=== PATIENT | female | born 1980 | race Caucasian/White ===

== ENCOUNTER → 2018-07-04 20:36 | Outpatient (CLI) | payer BC, SELFPAY ==
[2018-07-06 18:42] LABS: HPV Reflexed? NOT INDICATED
--- OUTSIDE RECORDS SUMMARY | 2018-10-06 10:19 | XMS RPT_ITS ---
:1980 Author Organization OHIP Care Team Providers Name Role Phone Sarai Lino Attending Unavailable PROBLEMS PROBLEMS DATE TYPE CONDITION / CODE ATTENDING STATUS SOURCE 07/04/2018 Unknown Z12.4 - Sarai Lino Active [place] Encounter for Community screening for Hospital malignant Repository neoplasm of cervix / Z12.4(ICD-10) PROCEDURES PROCEDURES No Procedure Records FoundRESULTS RESULTS PAP I-G W/RFX HRHPV Collected: 07/04/2018 Status: F Source: [facility] 3:15 PM [facility] REPOSITORY Order Comment: CYTOLOGY INFORMATION: - CLINICAL INFORMATION: - DATE LMP/MENOPAUSE: 06/12/18 LMP - COLLECTION VIAL: Thin Prep Vial - 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 of containers..01 ThinPrep Vial TYPE CODE TESTS RESULT OUT OF RANGE REFERENCE UNITS LAB L7400.0800 . Normal DIAGN Comment Result Comment: NEGATIVE FOR INTRAEPITHELIAL LESION AND MALIGNANCY. LAB L7400.0900 . Normal ADEQ Comment Result Comment: Satisfactory for evaluation. Endocervical and/or squamous metaplastic cells (endocervical component) are present. LAB L7400.1400 . Normal PERFORM Comment Result Comment: Vanna Haddad, Ore Sampler (ASCP) LAB L7400.2575 . Normal TEST METHOD Comment Result Comment: This liquid based ThinPrep(R) pap test was screened with the use of an image guided system. LAB L7400.2600 . Normal . COMM LAB L7400.2700 . Normal PAPSMR Comment Result Comment: The Pap smear is a screening test designed to aid in the detection of premalignant and malignant conditions of the uterine cervix. It is not a diagnostic procedure and should not be used as the sole means of detecting cervical cancer. Both false-positive and false-negative reports do occur. LAB L7400.2800 . Normal HPV RFLX Comment Result Comment: The HPV DNA reflex criteria were not met with this specimen result therefore, no HPV testing was performed. Performed at: [facility] Lab[address] [id number] Aromatherapist: Mitra Barcenas MD, Phone: [phone] Performed By: #### L7400.0350 #### [facility] (refer to report for specific site) refer to report for address and phone number ALLERGIES ALLERGIES No Allergies Records FoundENCOUNTERS ENCOUNTERS ADMIT/DISCHARGE ACCOUNT ADMITTING ENCOUNTER LOCATION SOURCE NUMBER CLASS 07/04/2018 [id number] Ambulatory [place]ia 1 [facility] ing:[facility] Repository PAYERS PAYERS ENCOUNTER GUARANTOR PAYER SUBSCRIBER SOURCE 07/04/2018 Neha S Primary Neha Plasencia [place] [id number] Insurance:[facility]: [facility] y Number: [id number] [id number] [place] [id number]: Date:8142-05-90SN [address] [place] [address] () [id number]: 07/04/2018 Secondary NOT GIVENUNK Elysia Insurance:SELF PAY [facility] Number: Effective Repository Date:2018-07-04
== END ==
PROVIDERS: Visit Provider Obstetrics & Gynecology
DX: Z12.4 Encounter for screening for malignant neoplasm of cervix (principal)
CPT/HCPCS: 88175; G0145

== ENCOUNTER → 2019-04-03 08:56 | Outpatient (CLI) | payer BC, SELFPAY ==
--- NOTE | 2019-04-03 09:00 | BI_ITS ---
MAMMOGRAPHY - BILATERAL SCREENING REASON FOR EXAM: Female, 39 years old. Routine annual screening examination. PERTINENT HISTORY: Non-contributory. TECHNIQUE: Digital bilateral breast leon (3D mammographic acquisition) in the CC and MLO projections. 2-D mediolateral oblique (MLO) and craniocaudad (CC) views of both breasts were obtained. CAD: Full Field Digital Mammography with Computer Added Detection was performed. COMPARISON: Comparison is made with prior examination dated May 05, 2013. FINDINGS: Breast Composition: The breasts are heterogeneously dense, which may obscure small masses. There are no dominant masses or suspicious calcifications. Small bilateral benign-appearing axillary lymph nodes. No other significant abnormalities are identified. There has been no significant change since the prior study. BI/SCREEN MAMM (CAD) W/LEON BILAT IMPRESSION: Stable bilateral screening mammogram. Yearly follow-up mammogram recommended. (A) ASSESSMENT CATEGORY: BIRADS Category 2: Benign. A letter regarding these results will be sent to the patient by the facility within 30 days. Approximately 10% of breast cancers are not detected by mammography. A normal mammogram should not delay biopsy of a clinically suspicious abnormality. [id number] Electronically Signed: Nick Coppola, at 10:49 EDT , Service support ,
== END ==
PROVIDERS: Referring Provider Obstetrics & Gynecology; Visit Provider Obstetrics & Gynecology
DX: Z12.31 Encounter for screening mammogram for malignant neoplasm of breast (principal)
CPT/HCPCS: 77063; 77067

== ENCOUNTER → 2019-04-20 12:59 | Outpatient (CLI) | payer BC, SELFPAY ==
[2019-04-20 12:46] VITALS: BMI 27.2
--- NOTE | 2019-04-20 13:11 | RAD_ITS ---
STUDY: X-RAY CHEST REASON FOR EXAM: Female, 39 years old. Cough. TECHNIQUE: PA and lateral views of the chest. COMPARISON: None. FINDINGS: Mild degree of increased markings in the right upper lobe as well as in the lingular segment of the left upper lobe. Follow-up is recommended. There is no demonstrated pleural abnormality. Normal size heart. Normal mediastinum and lit. Normal visualized pulmonary arteries. Normal visualized aortic arch and descending thoracic aorta. Normal visualized thoracic spine. Normal visualized ribs, clavicles, and shoulders. There is no demonstrated abnormality of the visualized soft tissue structures of the upper abdomen. RAD/Chest PA and Lateral IMPRESSION: Increased markings in the right upper lobe as well as the lingular segment of the left upper lobe. Early infiltrate should be ruled out. Follow-up is recommended. Electronically Signed: Nick Coppola, at 13:41 EDT , Service support ,
== END ==
PROVIDERS: Referring Provider Physician Assistant; Visit Provider Physician Assistant
DX: R05 Cough (principal)
CPT/HCPCS: 71046

== ENCOUNTER 2019-04-22 20:41 | Emergency (ER) | payer BC, SELFPAY ==
[2019-04-20 12:46] VITALS: BMI 27.2
[2019-04-22 20:42] VITALS: BP 119/71; PULSE 113; RESP 15; TEMP 38.1; O2SAT 95; BMI 25.8
[2019-04-22 21:41] VITALS: PULSE 105; RESP 18
[2019-04-22] MEDS: Albuterol 2.5 MG/3 ML VIAL.NEB. INHALATION (21:41)
[2019-04-22] MEDS: 0.9% Normal Saline 1,000 ML 1000 ML IV (22:00)
--- NOTE | 2019-04-22 22:09 | ED.VIS.GEN ---
History of Present Illness Chief Complaint: General Illness Informant: Patient Onset: Days Context: Sudden Onset Timing: Continuous Quality: Fever, chills, diaphoresis and productive cough Location: Respiratory Current Severity: Mild Maximum Severity: Moderate Worsened by: Coughing and activity Relieved by: Nothing Associated Symptoms: Fatigue and malaise Narrative: Patient reports she was in [facility] for 3 days. She has been ill since Wednesday with fever, chills and productive cough. On Wednesday she was seen at urgent clinic and had chest x-ray that was interpreted as negative. She was prescribed Augmentin. She is a non-smoker. No one else is ill. She reports headache and generalized weakness/malaise. She complains of lower abdominal pain. She has no other symptoms. Prior similar symptoms: No Recent Illness/Hospitalization: No - Past Medical History (1) Bronchitis Status: Acute Past Medical History - Allergies and Home Meds Allergies/Adverse Reactions: Allergies No Known Allergies Allergy (Verified 04/22/19 20:48) Primary Care Physician: Care Physician,No Primary [Primary Care Provider] - Prior records reviewed: No Past Medical History: None Surgical History: noncontributory Lives: Spouse/ Significant Other Smoking Status: Never smoker Drugs: None Review of Systems General: Reports: Chills, Fever, Malaise, Subjective, Sweats. Denies: Weight loss Eyes: Denies: Visual changes - bilaterally, Blurred Vision - bilaterally ENT: Denies: Bilateral ear pain, Rhinorrhea, Sore throat Cardiovascular: Denies: Chest pain, Palpitations Respiratory: Reports: Dyspnea, Cough, Sputum, Dyspnea on exertion. Denies: Orthopnea, Paroxysmal nocturnal dyspnea Gastrointestinal: Reports: Abdominal pain - Bilateral right and left lower quadrant, Nausea. Denies: Vomiting, Diarrhea, Constipation, Melena, Hematochezia Genitourinary: Denies: Dysuria, Hematuria, Frequency Musculoskeletal: Denies: Myalgias, Arthralgias, Neck pain, Back pain, Swelling, Extremity Pain Skin: Denies: Rash, Wounds Neurological: Reports: Weakness. Denies: Headache, Parasthesia, Numbness Hematologic: Denies: Easy bruising, Easy bleeding Physical Exam Vital Signs/Narrative: Vital Signs Temp Pulse Resp BP Pulse Ox 04/22/19 21:41 102 H 18 04/22/19 20:42 100.5 F H 113 H 15 119/71 95 Inital Vital Signs reviewed: Yes General: Well nourished, Well developed, No Acute Distress Head: Normocephalic, Atraumatic Eyes: Perrl, EOMI. Negative for: Pale conjunctiva, Scleral icterus ENT: Moist mucous membranes, No rhinorrhea, TM's clear Neck: Supple, Nontender, No lymphadenopathy, No JVD Cardiovascular: Regular rhythm, No murmurs, Normal S1, Tachycardia Respiratory: No distress, Chest nontender, Wheezing, Diminished Abdomen: Soft, Nontender, Nondistended, Normal bowel sounds Rectal: Deferred Back: Nontender, Normal Inspection Extremities: Nontender, No edema Skin: Normal color, No rash Neurological: Alert, Oriented x3, Cranial nerves II-XII grossly intact, Normal Strength, Normal Sensation Psychological: Normal affect, Normal Mood Diagnostic/Tx/Re-eval Chest X-Ray - ED: 2 View, Read by ED Physician, Normal, Heart, Mediastinum, Bony Structures, Right Infiltrate - Right middle lobe infiltrate Impressions Chest X-Ray 04/22/19 22:10 IMPRESSION: Right upper lobe, right middle lobe and left lingular infiltrates. These are progressive when compared to prior study. Again follow-up to clearing is recommended at 2244 Reported and signed by: Latosha Reno DO Electronically Signed: Latosha Reno DO at 22:43 EDT Tel , Service support , 04/22/19 22:10 Chest PA and Lateral [RAD] Stat Laboratory Results 04/22/19 04/22/19 04/22/19 21:55 21:55 21:55 WBC 5.1 RBC 3.98 L Hgb 11.7 L Hct 34.6 L MCV 86.9 MCH 29.4 MCHC 33.8 RDW Std Deviation 40.6 RDW Coeff of Carolee 12.6 Plt Count 184 MPV 10.4 Immature Gran % (Auto) 0.200 Neut % (Auto) 76.0 H Lymph % (Auto) 16.2 L O'Brien % (Auto) 7.2 Eos % (Auto) 0.2 Baso % (Auto) 0.2 Absolute Neuts (auto) 3.9 Absolute Lymphs (auto) 0.83 Nucleated RBC % 0 Sodium 140 Potassium 3.4 L Chloride 103 Carbon Dioxide 28.0 Anion Gap 9 BUN 7 Creatinine 0.70 Estim Creat Clear Calc 111.65 Est GFR (MDRD) Af Amer 120 Est GFR (MDRD) Non-Af 99 BUN/Creatinine Ratio 10.0 Glucose 102 Lactic Acid 0.7 Calcium 8.9 The radiology report was read. There is evidence of a lingular infiltrate. Since patient only has 1 sirs criteria normal white count normal electrolytes normal lactate and a port score of only 40 will discharge on antibiotic to cover atypicals as well. She received her first dose of levofloxacin in the emergency department. Since she does not have a primary care doctor she was referred to Dr. Tracy Yepez - Medical Decision Making Since patient is wheezing she was treated with albuterol aerosol x3. Chest x-ray was obtained since pneumonia may not be seen for several days. Since she is tachycardic and febrile CBC, BMP and lactate were obtained for risk stratification in the event that a infiltrate is noted on the chest x-ray. ED Disposition - Plan for ED Patient: Disposition: Home or Assisted Living Diagnosis: Bilateral pneumonia Instructions: PNEUMONIA (Adult) Prescriptions: Levofloxacin 750 mg PO DAILY #7 tab Prescription Printed Referrals: Care Physician,No Primary [Primary Care Provider] - Tracy Yepez MD [STAFF PHYSICIAN] - 3-5 Days
--- NOTE | 2019-04-22 22:10 | RAD_ITS ---
HISTORY:PERSISTENT COUGH, SOB, FEVER SINCE WEDNESDAYRECENTLY TRAVELED TO [facility] PERSISTENT COUGH, SOB, FEVER SINCE WEDNESDAYRECENTLY TRAVELED TO [facility] EXAM: XR Chest 2 Views: COMPARISON: April 20, 2019 FINDINGS: # of images incl. paperwork: 2 LINES/DEVICES: None. LUNGS: persistent right upper lobe increased opacity that has increased when compared to prior study. There is also increased opacity seen within the left lingula and the right middle lobe suspect for progressive infiltrates.. No consolidation, edema or effusion. No pneumothorax. MEDIASTINUM AND CARDIOVASCULAR STRUCTURES: Cardiac silhouette not enlarged. BONES AND SOFT TISSUES: Unremarkable. RAD/Chest PA and Lateral IMPRESSION: Right upper lobe, right middle lobe and left lingular infiltrates. These are progressive when compared to prior study. Again follow-up to clearing is recommended at 2244 Reported and signed by: Latosha Reno DO Electronically Signed: Latosha Reno DO at 22:43 EDT Tel , Service support ,
[2019-04-22 22:19] LABS: Absolute Lymphocyte Count 0.83 X10^3/uL (0.83-4.51); Absolute Neutrophil Count 3.9 X10^3/uL (2.0-7.7); Basophil# 0.01 X10^3/uL; Basophil% 0.2 % (0-1); Eosinophil# 0.01 X10^3/uL; Eosinophils% 0.2 % (0-5); Hematocrit 34.6 % (37-47); Hemoglobin 11.7 g/dL (12.0-15.0); Lymphocyte # 0.83 X10^3/ul (4.0); Lymphocyte % 16.2 % (19-41); Mean Corp Hgb Conc 33.8 g/dL (32-36); Mean Corpuscular Hgb 29.4 pg (27.0-32.0); Mean Corpuscular Volume 86.9 fL (81-99); Mean Platelet Vol. 10.4 fl (6.2-12.0); Monocyte# 0.37 X10^3/uL; Monocyte% 7.2 % (0-10); NRBC Flagged by Analyzer 0 % (0-5); Neutrophil # 3.88 X10^3/uL (2.7-7.7); Platelet Count 184 K/mm3 (150-450); RBC Distribution Width CV 12.6 % (11.6-14.6); RBC Distribution Width SD 40.6 fl (35.1-43.9); Red Blood Count 3.98 M/mm3 (4.2-5.4); White Blood Count 5.1 K/mm3 (4.4-11.0)
[2019-04-22 22:30] LABS: Anion Gap 9 (5-15); BUN 7 mg/dL (7-18); Calcium,Total 8.9 mg/dL (8.5-10.1); Chloride 103 mmol/L (98-107); EST Glomerular Filtration Rate 99 mL/min (>60); Est Glom Filt Rate - Afr Amer 120 mL/min (>60); Estimated Creatinine Clearance 111.65 ml/min; Glucose 102 mg/dL (74-106); Potassium 3.4 mmol/L (3.5-5.1); Sodium Level 140 mmol/L (136-145)
[2019-04-22 22:34] LABS: Lactic Acid 0.7 mmol/L (0.4-2.0)
[2019-04-22 22:57] VITALS: BP 112/71; PULSE 105; RESP 21; O2SAT 97
[2019-04-22 23:24] VITALS: BP 109/70; PULSE 104; RESP 18; O2SAT 95
[2019-04-22] MEDS: levoFLOXacin 750 MG Tablet PO (23:24)
== END 2019-04-22 23:47 | disposition home or self-care (01) ==
PROVIDERS: Emergency Provider Emergency Medicine
DX: J18.9 Pneumonia, unspecified organism (principal)
CPT/HCPCS: 71046; 80048; 83605; 85025; 94640; 94664; 96360; 99284; J7030; A4216

== ENCOUNTER 2019-04-25 10:23 | Emergency (ER) | payer BC, SELFPAY ==
[2019-04-25 10:23] VITALS: BP 127/69; PULSE 87; RESP 18; TEMP 36.4; O2SAT 99; BMI 27.3
--- NOTE | 2019-04-25 10:33 | RAD_ITS ---
STUDY: X-RAY CHEST REASON FOR EXAM: Female, 39 years old. Pneumonia TECHNIQUE: PA and lateral views of the chest. COMPARISON: 04/22/2019 FINDINGS: No change in the faint alveolar opacity in the periphery of the right upper lobe the lungs consistent with right upper lobe pneumonia. There is no demonstrated pleural abnormality. Normal size heart. Normal mediastinum and lit. Normal visualized pulmonary arteries. Normal visualized aortic arch and descending thoracic aorta. Normal visualized thoracic spine. Normal visualized ribs, clavicles, and shoulders. There is no demonstrated abnormality of the visualized soft tissue structures of the upper abdomen. RAD/Chest PA and Lateral IMPRESSION: No change in right upper lobe pneumonia. Electronically Signed: Phani Aabrca MD at 11:35 EDT Tel , Service support ,
--- NOTE | 2019-04-25 10:41 | ED.VIS.GEN ---
History of Present Illness Chief Complaint: Shortness of Breath Detail of Chief Complaint: With bilateral pneumonia Wednesday Informant: Patient Onset: - - Onset of illness last Wednesday, 8 days ago Context: Sudden Onset Timing: Intermittent Quality: Fever, chills, cough and shortness of breath Location: Generalized and respiratory Current Severity: Mild Maximum Severity: Moderate Worsened by: Nothing Relieved by: Improved with antipyretic and albuterol MDI Associated Symptoms: Fever to 101.0 ?F last evening shaking chills. She had episode of emesis Narrative: Patient is a 39-year-old female who had onset of rest for symptoms last Wednesday, February 16. She was seen on Wednesday and diagnosed with bilateral pneumonia and treated with levofloxacin and 50 mg. Patient had persistent fever and chills. She reports breathing is better. She feels at this time her lungs are tight. She has not had a documented fever or chills since last evening, 2200. She states she vomited 1.5 hours after taking dose of levofloxacin last evening. She denies headache, visual, ocular auditory symptoms. Cough is less productive. She has not vomited since last evening. She states her fingers are cold when she has the chills. She denies myalgias or arthralgias. Prior similar symptoms: Yes Recent Illness/Hospitalization: Yes - Past Medical History (1) Bilateral pneumonia Status: Acute Past Medical History - Allergies and Home Meds Allergies/Adverse Reactions: Allergies No Known Allergies Allergy (Verified 04/22/19 20:48) Primary Care Physician: Care Physician,No Primary [Primary Care Provider] - Prior records reviewed: Yes Surgical History: noncontributory Lives: Spouse/ Significant Other Smoking Status: Never smoker Alcohol: Rare Drugs: None Review of Systems General: Reports: Chills, Fever, Malaise. Denies: Subjective, Sweats, Weight loss Eyes: Denies: Visual changes - bilaterally, Blurred Vision - bilaterally, Diplopia ENT: Denies: Bilateral ear pain, Rhinorrhea, Sore throat Cardiovascular: Denies: Chest pain, Palpitations, Heart racing Respiratory: Reports: Dyspnea, Cough, Sputum, Dyspnea on exertion. Denies: Orthopnea, Paroxysmal nocturnal dyspnea Gastrointestinal: Denies: Abdominal pain, Nausea, Vomiting, Diarrhea, Melena, Hematochezia Musculoskeletal: Denies: Myalgias, Arthralgias, Neck pain, Back pain, Swelling, Extremity Pain Skin: Denies: Rash, Wounds Neurological: Denies: Headache, Weakness, Parasthesia Hematologic: Denies: Easy bruising, Easy bleeding Allergy: Denies: Uticaria, Swelling of the mouth Physical Exam Vital Signs/Narrative: Vital Signs Temp Pulse Resp BP Pulse Ox 04/25/19 10:23 97.5 F L 87 18 127/69 H 99 Inital Vital Signs reviewed: Yes General: Well nourished, Well developed, No Acute Distress Head: Normocephalic, Atraumatic Eyes: Perrl, EOMI. Negative for: Pale conjunctiva, Scleral icterus ENT: Moist mucous membranes, TM's clear Neck: Supple, Nontender, No lymphadenopathy, No JVD Cardiovascular: Regular rate, Regular rhythm, No murmurs, Normal S1, Normal S2 Respiratory: No distress, Chest nontender, Rales - Rales posteriorly left lower lobe. Negative for: CTA bilaterally Abdomen: Soft, Nontender, Nondistended, Normal bowel sounds Rectal: Deferred Back: Nontender, Normal Inspection Extremities: Nontender, No edema Skin: Normal color, Rash - Blanching erythematous macular rash anterior superior chest Neurological: Alert, Oriented x3, Cranial nerves II-XII grossly intact, Normal Strength, Normal Sensation, Normal DTR Psychological: Normal affect, Normal Mood Diagnostic/Tx/Re-eval Chest X-Ray - ED: 2 View, Read by ED Physician, - - Lingula infiltrate has essentially resolved. The right middle lobe infiltrate has improved. There is still slight streaking noted right upper lobe. Impressions Chest X-Ray 04/25/19 10:33 IMPRESSION: No change in right upper lobe pneumonia. Electronically Signed: Phani Abarca MD at 11:35 EDT Tel , Service support , 04/25/19 10:33 Chest PA and Lateral [RAD] Stat Laboratory Results 04/25/19 04/25/19 04/25/19 10:45 10:45 10:45 WBC 4.9 RBC 4.08 L Hgb 12.0 Hct 36.4 L MCV 89.2 MCH 29.4 MCHC 33.0 RDW Std Deviation 41.3 RDW Coeff of Carolee 12.5 Plt Count 230 MPV 9.5 Immature Gran % (Auto) 0.800 Neut % (Auto) 71.6 H Lymph % (Auto) 17.3 L Stafford % (Auto) 9.3 Eos % (Auto) 0.6 Baso % (Auto) 0.4 Absolute Neuts (auto) 3.5 Absolute Lymphs (auto) 0.85 Nucleated RBC % 0 Sodium 137 Potassium 3.4 L Chloride 104 Carbon Dioxide 28.0 Anion Gap 5 BUN 6 L Creatinine 0.66 Estim Creat Clear Calc 118.41 Est GFR (MDRD) Af Amer 128 Est GFR (MDRD) Non-Af 106 BUN/Creatinine Ratio 9.1 L Glucose 92 Lactic Acid 0.9 Calcium 9.0 Since white count is normal with normal differential, electrolytes are normal and lactate is normal with improving chest x-ray will discharge to home. Since she reports nausea will prescribe Zofran. - Medical Decision Making With persistent fever and chills will obtain chest x-ray since there is new findings compared to this past Wednesday and will obtain blood work for risk stratification. Since she is having persistent fevers will obtain blood cultures as well. ED Disposition - Plan for ED Patient: Disposition: Home or Assisted Living Diagnosis: Community acquired pneumonia Prescriptions: Ondansetron [Zofran Odt] 4 mg PO Q8H PRN PRN #6 tab PRN Reason: Nausea Transmission Status: Pending to [facility]/pharmacy #[id number] Referrals: Care Physician,No Primary [Primary Care Provider] - Tracy Yepez MD [STAFF PHYSICIAN] - Additional Instructions: Your prescription was electronically transmitted to preferred pharmacy.
[2019-04-25 10:56] LABS: Absolute Lymphocyte Count 0.85 X10^3/uL (0.83-4.51); Absolute Neutrophil Count 3.5 X10^3/uL (2.0-7.7); Basophil# 0.02 X10^3/uL; Basophil% 0.4 % (0-1); Eosinophil# 0.03 X10^3/uL; Eosinophils% 0.6 % (0-5); Hematocrit 36.4 % (37-47); Lymphocyte # 0.85 X10^3/ul (4.0); Lymphocyte % 17.3 % (19-41); Mean Corpuscular Hgb 29.4 pg (27.0-32.0); Mean Corpuscular Volume 89.2 fL (81-99); Mean Platelet Vol. 9.5 fl (6.2-12.0); Monocyte# 0.46 X10^3/uL; Monocyte% 9.3 % (0-10); NRBC Flagged by Analyzer 0 % (0-5); Neutrophil # 3.52 X10^3/uL (2.7-7.7); Neutrophil % 71.6 % (47-70); Platelet Count 230 K/mm3 (150-450); RBC Distribution Width CV 12.5 % (11.6-14.6); RBC Distribution Width SD 41.3 fl (35.1-43.9); Red Blood Count 4.08 M/mm3 (4.2-5.4); White Blood Count 4.9 K/mm3 (4.4-11.0)
[2019-04-25 11:13] LABS: Anion Gap 5 (5-15); BUN 6 mg/dL (7-18); BUN/Creat Ratio 9.1 RATIO (10-20); Chloride 104 mmol/L (98-107); Creatinine, Serum 0.66 mg/dL (0.55-1.02); EST Glomerular Filtration Rate 106 mL/min (>60); Est Glom Filt Rate - Afr Amer 128 mL/min (>60); Estimated Creatinine Clearance 118.41 ml/min; Glucose 92 mg/dL (74-106); Potassium 3.4 mmol/L (3.5-5.1); Sodium Level 137 mmol/L (136-145)
[2019-04-25 11:29] LABS: Lactic Acid 0.9 mmol/L (0.4-2.0)
[2019-04-25 12:19] VITALS: BP 104/67; PULSE 86; RESP 16; O2SAT 97
== END 2019-04-25 12:34 | disposition home or self-care (01) ==
PROVIDERS: Emergency Provider Emergency Medicine
DX: J18.9 Pneumonia, unspecified organism (principal); R21 Rash and other nonspecific skin eruption
CPT/HCPCS: 71046; 80048; 83605; 85025; 87040; 99283; A4216

== ENCOUNTER 2019-08-16 12:56 | Outpatient (RCR) | payer BC, SELFPAY ==
[2019-05-22 13:38] VITALS: BMI 27.3
--- NOTE | 2019-08-18 12:39 | HP.OTEVAL_ITS ---
Patient's Visit Information MARIYA MORENO is a 39 year old F, referred to Occupational Therapy by Jose Burt MD, with a diagnosis of Left hand contracture.. Date of Evaluation: 08/16/19 Occupational Therapist: Elysia Harper, OTR/[place], CHT - Subjective Subjective: This 39 year old female was seen for dx of left hand contracture. Pt states the initial injury was 2019- May 12 placed for 6 weeks in splint- Jun.23 splint removed pt states she just had not been able to gain much ROM. On saw dr. Hamilton and he rec. therapy to help pt gain functional ROM. - Pain left IF 4 Pain Intensity Range: 5 - ROM MP: MF right 0/85 left 0/90 PIP: MF right 0/105 left 0/60 DIP: MF right 0/70 left 10/30 - Strength Special Education Superintendent: right 80# left 60# Lateral Pinch: right 12# eft 12# Tripod Pinch: right 14# left 8# - Sensation Sensation Comments: states when hand is cold left IF gets numb - Quick DASH-Disab of Arm,Shoulder& Hand Quick DASH Score: 32.1425 - Goals Goal:: Pt will demo a increase in left bakery associate strength by 20# to increase pts ind with ADls and IADLs by d/c. Goal:: Pt will demo the ability to form a composite fist to return to her PLOF with ADLs and IADLs as manipulating fasteners, coins and typing. Goal:: pt will report pain no greater than 1/10 with use of left hand with ADLs and IADLs by d/c - Rehabilitation General Assessment: Pt demo with limited ROM and strength of left MF. This has increased pts difficulty with ADLS and IADLs. Pt would benefit from skilled OT services 1x week for 4 weeks to ensure pt returns to PLOF. Today therapist did use Paraffin to increase soft tissue elasticity, ed. pt on AROM and AAROM ex to increase pts finger flex. pt demo understanding and agree to POC. Pt will focus with HEP and return as needed. Rehabilitation Potential: Good - Anticipated Interventions Anticipated Interventions: A/AAROM/PROM, Modalities, Orthoses, Joint Protection/Energy Conservation, Home Program - Visit Plan Frequency: 1x/Week Duration: 4 Weeks General Plan: pt has requested HEP- pt demo understanding of HEP- therapist will hold chart open for 4-6 weeks incase pt needs to return for further instructions or tx. TEXT: Thank you for the opportunity to evaluate your patient. For Medicare and Medicare HMO plans, please review the plan of care and approve it. It will need to be FAXED BACK to us at [phone] for Medicare purposes. Please let me know if there are questions or concerns regarding this plan of care. Physician Signature: Date:
--- NOTE | 2019-08-30 12:11 | HP.OT.NRP ---
HP - Discharge Summary - Patient Information MARIYA MORENO was seen in my office for initial evaluation on 08/16/19. The following Plan of Care was established for this patient: Initial Frequency: 1x/Week Initial Duration: 4 Weeks - Anticipated Interventions Anticipated Interventions: A/AAROM/PROM, Modalities, Orthoses, Joint Protection/Energy Conservation, Home Program This patient was last seen in our office 08/16/19. Pertinent comments regarding their Occupational therapy will appear below: pt seen for eval only- due to high deductible pt does not want to schedule further OT sessions. Pt D/c at this time. At this point I will be discontinuing this patient from occupational therapy. I would be happy to see this patient again in the future if found appropriate by the physician. Thank you! Elysia Harper, OTR/L, CHT
== END 2019-08-16 19:00 | disposition home or self-care (01) ==
LOC: OT 12:56
PROVIDERS: PCP Internal Medicine; Referring Provider Orthopaedic Surgery; Visit Provider Orthopaedic Surgery
DX: M24.542 Contracture, left hand (principal)
CPT/HCPCS: 97110; 97140; 97165; 97166

== ENCOUNTER → 2020-12-18 11:10 | Outpatient (CLI) | payer OTHER, SELFPAY ==
[2020-12-18 10:33] VITALS: BMI 27.3
[2020-12-18 12:06] LABS: Absolute Lymphocyte Count 1.63 X10^3/uL (0.83-4.51); Absolute Neutrophil Count 3.8 X10^3/uL (2.0-7.7); Basophil# 0.04 X10^3/uL; Basophil% 0.7 % (0-1); Eosinophil# 0.06 X10^3/uL; Hematocrit 39.6 % (37-47); Hemoglobin 13.3 g/dL (12.0-15.0); Lymphocyte # 1.63 X10^3/ul (0.83-4.51); Lymphocyte % 27.5 % (19-41); Mean Corp Hgb Conc 33.6 g/dL (32-36); Mean Corpuscular Hgb 29.7 pg (27.0-32.0); Mean Corpuscular Volume 88.4 fL (81-99); Mean Platelet Vol. 10.3 fl (6.2-12.0); Monocyte# 0.42 X10^3/uL; Monocyte% 7.1 % (0-10); NRBC Flagged by Analyzer 0 % (0-5); Neutrophil # 3.76 X10^3/uL (2.7-7.7); Neutrophil % 63.4 % (47-70); Platelet Count 278 K/mm3 (150-450); RBC Distribution Width CV 12.4 % (11.6-14.6); RBC Distribution Width SD 40.3 fl (35.1-43.9); Red Blood Count 4.48 M/mm3 (4.2-5.4); White Blood Count 5.9 K/mm3 (4.4-11.0)
[2020-12-18 12:32] LABS: ALB/GLOB Ratio 1.1 RATIO (0.9-2.4); AST(SGOT) 12 U/L (15-37); Alanine Aminotransfer ALT/SGPT 21 U/L (13-56); Albumin, Serum 3.9 g/dL (3.2-5.0); Alkaline Phosphatase 81 U/L (45-117); Anion Gap 4 (5-15); BUN 11 mg/dL (7-18); BUN/Creat Ratio 17.5 RATIO (10-20); Calcium,Total 8.9 mg/dL (8.5-10.1); Chloride 104 mmol/L (98-107); Cholesterol 217 mg/dL (200); Creatinine, Serum 0.63 mg/dL (0.55-1.02); EST Glomerular Filtration Rate 111 mL/min (>60); Est Glom Filt Rate - Afr Amer 134 mL/min (>60); Globulin 3.7 g/dL (2.2-4.2); Glucose 87 mg/dL (74-106); High Density Lipoprotein 66 mg/dL; Potassium 3.8 mmol/L (3.5-5.1); Protein, Total 7.6 g/dL (6.4-8.2); Sodium Level 138 mmol/L (136-145); Triglycerides 222 mg/dL; Very Low Density Lipoprotein 44 mg/dL (5-40); Vitamin D,25 Hydroxy 38.1 ng/mL
== END ==
PROVIDERS: PCP Internal Medicine; Visit Provider Internal Medicine
DX: Z00.00 Encounter for general adult medical examination without abnormal findings (principal)
CPT/HCPCS: 36415; 80053; 80061; 82306; 85025

== ENCOUNTER → 2021-01-10 10:08 | Outpatient (CLI) | payer OTHER, SELFPAY ==
[2020-12-18 10:33] VITALS: BMI 27.3
--- NOTE | 2021-01-10 10:09 | BI_ITS ---
MAMMOGRAPHY - BILATERAL SCREENING 3-D TOMOSYNTHESIS REASON FOR EXAM: Female, 40 years old. Breast Cancer Screening PERTINENT HISTORY: No significant family history. TECHNIQUE: 2-D mammograms and 3-D Tomosynthesis of the breast (s) were performed. CAD was performed. COMPARISON: 04/03/2019 FINDINGS: The breast composition is Of heterogeneous fibroglandular tissue Scattered benign calcifications are seen. No dense spiculated masses or suspicious microcalcifications are identified. No architectural distortion is identified. There is no skin thickening or nipple retraction. There has been no significant change since the prior study of 04/03/2019 BI/SCRN MAMM (CAD)W/LEON BILAT IMPRESSION: No mammographic signs of malignancy. Routine yearly mammograms recommended. ASSESSMENT CATEGORY: BIRADS Category 1: Negative. A letter regarding these results will be sent to the patient by the facility within 30 days. FOLLOW UP RECOMMENDATION: Yearly follow up mammogram recommended. (A) Approximately 10% of breast cancers are not detected by mammography. A normal mammogram should not delay biopsy of a clinically suspicious abnormality. Electronically Signed: Estela Negron, at 14:11 EDT Tel , Service support ,
== END ==
PROVIDERS: PCP Internal Medicine; Referring Provider Internal Medicine; Visit Provider Internal Medicine
DX: Z12.31 Encounter for screening mammogram for malignant neoplasm of breast (principal)
CPT/HCPCS: 77063; 77067

== ENCOUNTER → 2022-03-10 | Outpatient (CLI) | payer OTHER, SELFPAY ==
[2022-03-13 18:54] LABS: HPV Reflexed? NOT INDICATED
== END | disposition home or self-care (01) ==
LOC: WOBLAB 10:42
PROVIDERS: PCP Internal Medicine; Visit Provider Student in an Organized Health Care Education/Training Program
DX: Z12.4 Encounter for screening for malignant neoplasm of cervix (principal)
CPT/HCPCS: 88175; G0145

== ENCOUNTER → 2022-03-31 | Outpatient (CLI) | payer OTHER, SELFPAY ==
--- NOTE | 2022-03-31 10:33 | BI_ITS ---
MAMMOGRAPHY - BILATERAL SCREENING REASON FOR EXAM: Female, 42 years old. Routine annual screening examination. PERTINENT HISTORY: Non-contributory. TECHNIQUE: Digital bilateral breast leon (3D mammographic acquisition) in the CC and MLO projections. 2-D mediolateral oblique (MLO) and craniocaudad (CC) views of both breasts were obtained. CAD: Full Field Digital Mammography with Computer Added Detection was performed. COMPARISON: Comparison is made with prior study dated 01/10/2021 and 04/03/2019. FINDINGS: Breast Composition: The breasts are heterogeneously dense, which may obscure small masses. There are no dominant masses or suspicious calcifications. Stable small benign appearing bilateral axillary nodes. No other significant abnormalities are identified. There has been no significant change since the prior study. BI/SCRN MAMM (CAD)W/LEON BILAT IMPRESSION: Stable bilateral screening mammogram. Yearly follow-up mammogram recommended. (A) ASSESSMENT CATEGORY: BIRADS Category 2: Benign. A letter regarding these results will be sent to the patient by the facility within 30 days. Approximately 10% of breast cancers are not detected by mammography. A normal mammogram should not delay biopsy of a clinically suspicious abnormality. [id number] Electronically Signed: Nick Coppola MD at 13:29 EDT ,
== END | disposition home or self-care (01) ==
LOC: OPBI 10:32
PROVIDERS: PCP Internal Medicine; Referring Provider Student in an Organized Health Care Education/Training Program; Visit Provider Student in an Organized Health Care Education/Training Program
DX: Z12.31 Encounter for screening mammogram for malignant neoplasm of breast (principal)
CPT/HCPCS: 77063; 77067

== ENCOUNTER → 2023-11-08 | Outpatient (CLI) | payer OTHER, SELFPAY ==
[2023-11-12 10:08] LABS: HPV APTIMA, High Risk Negative (Negative)
== END | disposition home or self-care (01) ==
LOC: LABSPEC 16:35
PROVIDERS: PCP Internal Medicine; Referring Provider Nurse Practitioner Women's Health; Visit Provider Nurse Practitioner Women's Health
DX: Z12.4 Encounter for screening for malignant neoplasm of cervix (principal)
CPT/HCPCS: 87624; 88175; G0145

== ENCOUNTER → 2023-12-07 | Outpatient (CLI) | payer OTHER, SELFPAY ==
--- NOTE | 2023-12-07 09:40 | BI_ITS ---
MAMMOGRAPHY - BILATERAL SCREENING 3-D TOMOSYNTHESIS REASON FOR EXAM: Female, 43 years old. Screening for breast cancer PERTINENT HISTORY: No significant family history. TECHNIQUE: 2-D mammograms and 3-D Tomosynthesis of the breast (s) were performed. CAD was performed. COMPARISON: 03/31/2022 FINDINGS: The breast composition is heterogeneously dense that can obscure small breast masses. Scattered benign calcifications are seen. No dense spiculated masses or suspicious microcalcifications are identified. No architectural distortion is identified. There is no skin thickening or retraction. There has been no significant change since the prior study. BI/SCRN MAMM (CAD)W/LEON BILAT IMPRESSION: No mammographic signs of malignancy. Routine yearly mammograms recommended. ASSESSMENT CATEGORY: BIRADS Category 1: Negative. A letter regarding these results will be sent to the patient by the facility within 30 days. FOLLOW UP RECOMMENDATION: Yearly follow up mammogram recommended. (A) Approximately 10% of breast cancers are not detected by mammography. A normal mammogram should not delay biopsy of a clinically suspicious abnormality. Electronically Signed: Phani Abarca MD at 0:01 EDT ,
== END | disposition home or self-care (01) ==
LOC: OPBI 09:40
PROVIDERS: PCP Internal Medicine; Referring Provider Nurse Practitioner Women's Health; Visit Provider Nurse Practitioner Women's Health
DX: Z12.31 Encounter for screening mammogram for malignant neoplasm of breast (principal)
CPT/HCPCS: 77063; 77067

== ENCOUNTER → 2024-12-07 | Outpatient (CLI) | payer OTHER, SELFPAY ==
--- NOTE | 2024-12-07 09:24 | BI_ITS ---
EXAM: SCRN MAMM (CAD)W/LEON BILAT DATE: 12/07/2024 CLINICAL HISTORY: F, Age 44 y/o , SCREENING No family history. BREAST CANCER RISK ASSESSMENT: Not assessed. TECHNIQUE: Bilateral screening digital breast tomosynthesis with 2D and 3D images. Computer aided detection. COMPARISON: Prior exam(s) dated December 07, 2023.. FINDINGS: TISSUE DENSITY: The breast tissue is heterogenously dense, which may obscure small masses. Bilateral Breast Mammographic Findings: No significant masses, calcifications or other abnormalities are identified. No suspicious masses, areas of developing architectural distortion, or suspicious calcifications. There has been no significant interval change. BI/SCRN MAMM (CAD)W/LEON BILAT IMPRESSION: OVERALL FINAL ASSESSMENT: BIRADS 1 NEGATIVE RECOMMENDATION: Routine annual follow-up in 1 Year A letter with findings and recommendations will be mailed to the patient. Reading Location: [place] [address]
== END | disposition home or self-care (01) ==
LOC: OPBI 09:23
PROVIDERS: PCP Internal Medicine; Referring Provider Nurse Practitioner Women's Health; Visit Provider Nurse Practitioner Women's Health
DX: Z12.31 Encounter for screening mammogram for malignant neoplasm of breast (principal)
CPT/HCPCS: 77063; 77067

== ENCOUNTER 2025-02-21 08:01 | Day surgery (SDC) | payer OTHER, SELFPAY ==
[2025-02-21] VITALS (7 sets, daily range): BP systolic 95–108; BP diastolic 55–68; PULSE 62–78; RESP 14–18; TEMP 36.4–36.9; O2SAT 99–100; BMI 28.2
--- NOTE | 2025-02-21 08:13 | PRE.ANES_ITS ---
ASA Classification* ASA Classification ASA Classification: 2 Assessment & Plan Anesthesia* Anesthesia Assessment Anesthesia Assessment: Discussed sedation and/or anesthesia options, risks, benefits, and alternatives with patient/parents/legal guardian/POA. Questions invited. The patient/parents/legal guardian/POA seems to understand and agrees to proceed with anesthesia plan. Reviewed the physical assessment, medical history, allergy history and patient home medications list prior to surgery/procedure/anesthetic and documented any changes. Performed airway and anesthesia risk assessments. Anesthesia Type Anesthesia Type: MAC Anesthesia Focused Assessment* Airway Assessment Mouth opens: >3 cm Mallampati Score: II Labs Anesthesia Preop lab: CBC WBC 5.9 K/mm3 (4.4-11.0) 12/18/20 11:11 12/18/20 RBC 4.48 M/mm3 (4.2-5.4) 12/18/20 11:11 12/18/20 Hgb 13.3 g/dL (12.0-15.0) 12/18/20 11:11 12/18/20 Hct 39.6 % (37-47) 12/18/20 11:11 12/18/20 Plt Count 278 K/mm3 (150-450) 12/18/20 11:11 12/18/20 CHEMISTRY Potassium 3.8 mmol/L (3.5-5.1) 12/18/20 11:11 12/18/20 Sodium 138 mmol/L (136-145) 12/18/20 11:11 12/18/20 BUN 11 mg/dL (7-18) 12/18/20 11:11 12/18/20 Creatinine 0.63 mg/dL (0.55-1.02) 12/18/20 11:11 12/18/20 Glucose 87 mg/dL (74-106) 12/18/20 11:11 12/18/20 TSH 1.21 uIU/mL (0.358-3.74) 05/04/13 16:37 COAG HCG, Quant 3822 mIU/mL (<9 non-preg) H 07/18/12 09:36 06/20 07/30 Urine Test Pending 02/21/25 08:05 02/21/25 Pre-Assessment Diagnosis/Proposed Procedure Planned Operative Procedure(s): COLONOSCOPY Anesthesia History Anesthesia History - stave and bolt equalizer: Anesthesia History - stave and bolt equalizer Hx Hospitalization No 02/16/25 13:47 Any Problems With Anesthesia No 02/16/25 13:47 Cholinesterase deficiency No 02/16/25 13:47 You/Your Family Experience No 02/16/25 13:47 fever (hyperthermia) with Relationship Recent Exposure to Contagious Disease Does patient have nerve No 02/16/25 13:47 stimulator Patient instructed to have device shut off --Does patient have Pacemaker or ICD? When Was Last Pacemaker Check QUESTION #4 FULL TEXT: You/Your Family Experience fever (hyperthermia) with Anesthesia Last Oral Intake Last Oral intake: Last Oral Intake NPO since Meds taken in AM with sips of water? Meds patient instructed to take am of surgery PONV PONV - stave and bolt equalizer: PONV - stave and bolt equalizer Female Yes 02/16/25 13:47 HX of Motion Sickness Yes 02/16/25 13:47 HX of N/V After Surgery Yes 02/16/25 13:47 Non-Smoker Yes 02/16/25 13:47 Duration of Surgery greater No 02/16/25 13:47 than 60 minutes Number of Risk Factors 4 02/16/25 13:47 PONV Score Severe Risk 02/16/25 13:47 Height & Weight Height & Weight: Anesthesia: Height & Weight Height 5 ft 8.75 in 11/08/24 10:03 Respiratory Assessment Respiratory Assessment - stave and bolt equalizer: Respiratory Tract Infection Hx - stave and bolt equalizer Hx Respiratory Tract Infection No 02/16/25 13:47 STOP Sleep Apnea STOP Sleep Apnea - stave and bolt equalizer: STOP Sleep Apnea - stave and bolt equalizer Hx Hypertension No 02/16/25 13:47 Hx Sleep Apnea No 02/16/25 13:47 CPAP BIPAP Do you snore loudly (louder No 02/16/25 13:47 than talking or can be heard Do you often feel tired/ No 02/16/25 13:47 fatigued/ sleepy during daytime? Has anyone observed you stop No 02/16/25 13:47 breathing during sleep? STOP Results Negative 02/16/25 13:47 QUESTION #5 FULL TEXT : Do you snore loudly (louder than talking or can be heard through closed doors)? 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 Specify any problems Hx of Preganancy in last 3 No 02/16/25 13:47 Months Nurse Filling Out Transfusion VLEHOAKTON 02/16/25 13:47 & Questions: Date: 02/16/25 02/16/25 13:47 Time: 13:51 02/16/25 13:47 Patient unable to answer at this time (ie. confused, unrespo /Reproduction History /Reproductive History - stave and bolt equalizer: /Reproductive Hx- stave and bolt equalizer Hx Now No 02/16/25 13:47 Gestational Age (in weeks): EDC: Hx Hx Para Hx Section SAB No 02/16/25 13:47 Active Medications Active Medications: Current Medications Generic Name Dose Route Start Last Admin Trade Name Freq PRN Reason Stop Dose Admin Lactated Ringer's 1,000 mls @ 15 mls/hr 02/21/25 08:15 IV .Q48H MARIIA PFSH Medical History Non-smoker Bilateral pneumonia Home Medications ?Medication ?Instructions ?Recorded ?Last Taken ?Type multivitamin with minerals 1 ea PO DAILY 04/22/19 Unkn own History Allergy/AdvReac Type Severity Reaction Status Date / Time No Known Allergies Allergy Verified 02/16/25 13:46 Family History Mother Anxiety Father Cancer prostate Grandmother Parkinsons Uncle Colon cancer Maternal Uncle Cancer Paternal- Lung Surgical History History of D&C Hx of removal of cyst Social History household members: spouse current occupational status: employed 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
[2025-02-21 08:22] LABS: Internal QC Validated? YES +Cl - CLEAR BKGD; Pregnancy, Urine Negative Negative
[2025-02-21 08:23] LABS: Record Kit Lot#,Urine Preg 0000962302
[2025-02-21] MEDS: Lactated Ringers 1,000 ML 15 ML IV (08:37)
--- NOTE | 2025-02-21 09:00 | COLBX_PTH ---
PATIENT: MARIYA MORENO LOC: EN U#:[id number] AGE/SX: 44/F ROOM: RE02/21/[address]: Dr. Macario Rg DO : 1980 BED: DIS: 02/21/2025 SPEC #: [id number] RECD: 02/21/25 12:01 STATUS: AFSANEH REDestiney #: [id number] CHING: 02/21/25 09:[address]: Macario Rg DEPT: SURGICAL PATHOLOGY RECD BY: Jin Preciado ENTERED: 02/21/25 13:46 SP TYPE: COLON BX JAIRON DR: Dr. Pattie Villanueva DO Tissues: A - Ascending colon Procedures: Surgery Specimen Level IV HEADER OPERATION: Colonoscopy with biopsy PRE-OP DIAGNOSIS: Encounter for screening colonoscopy TISSUE SUBMITTED: A- Ascending colon polyp MICROSCOPIC DIAGNOSIS A. Large intestine, ascending polyp, biopsy: * Inflammatory polyp MICROSCOPIC DESCRIPTION Slides are reviewed. GROSS DESCRIPTION A. Received in fixative is one container labeled with the patient's name and designated Ascending colon polyp. The specimen consists of one irregular fragment of light carlton soft tissue that measures 0.2 cm. The specimen is totally submitted in one cassette. RI 02/21/2025 CPT:39937
--- NOTE | 2025-02-21 09:20 | HP.PCM_ITS ---
[facility] - General General Date of Admission: 02/21/25 Date of Service: 02/21/25 Chief Complaint: Screening colonoscopy [facility] Narrative MARIYA MORENO, is a 44 F who presents today for screening colonoscopy. She has never had a colonoscopy in the past. She has no significant past medical history. She does not take any medicines on a daily basis. 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 Smoking Status: Never smoker alcohol intake: never substance use type: does not use what type of physical activity do you participate in: running frequency: daily seatbelt use: always do you feel safe at home: Yes additional social history: - [employer]- G[employer]ano @ [employer] [facility] Constitutional Constitutional: Denies fatigue, fever(s), poor appetite, weight gain or weight loss Gastrointestinal Gastrointestinal: Denies belching, bloating, change in bowel habits, change in stool character, chewing difficulty, coffee ground emesis, constipation, cramping, diarrhea, dyspepsia, dysphagia, early satiety, excessive flatus, fecal incontinence, heartburn, hematemesis, hematochezia, hemorrhoids, loose stools, melena, nausea, odynophagia, rectal bleeding, tenesmus, vomiting or weight changes Vital Signs Vital Signs Vital Signs: 02/21/25 08:22 02/21/25 08:22 Temperature 98.4 F Temperature Source Temporal Pulse Rate 78 Respiratory Rate 18 Respiratory Pattern Normal Blood Pressure 108/68 Blood Pressure Mean 81 Blood Pressure Source Monitor Blood Pressure Position Semi-Fowlers Blood Pressure Location Right Arm Pulse Ox 99 Oxygen Delivery Method Room Air Weight Weight: 189 lb 9.561 oz Body Mass Index (BMI) 28.2 Physical Exam Const alert, oriented x3, no apparent distress and healthy appearing General Appearance: cooperative GI normal to inspection, nondistended, normoactive bowel sounds, soft to palpation, non-tender and non-distended Percussion: normal to percussion Rectal Exam: deferred Results Lab / Micro Data Labs: Laboratory Results - last 24 hr 02/21/25 08:05: Urine Test Negative Assessment & Plan Assessment/Plan (1) Encounter for screening colonoscopy: PLAN: She was explained alternatives, risk and benefits include not withstanding bleeding, infection, sepsis, perforation, need for more charge and . She will have an ASA of 3.
--- NOTE | 2025-02-21 10:06 | OP.COLON_ITS ---
Patient Name: Neha Bui Procedure Date: 02/21/2025 9:30 AM Date of : 1980 Age: 44 Procedure: Colonoscopy Indications: Screening for colorectal malignant neoplasm Providers: Macario Rg DO Referring MD: Pattie Villanueva Medicines: Monitored Anesthesia Care Patient Profile: This is a 44 year old female. Refer to note in patient chart for documentation of history and physical. Last Colonoscopy: none. The patient's first colonoscopy is today. Complications: No immediate complications. Procedure: Pre-Anesthesia Assessment: - Prior to the procedure, a History and Physical was performed, and patient medications and allergies were reviewed. The patient is competent. The risks and benefits of the procedure and the sedation options and risks were discussed with the patient. All questions were answered and informed consent was obtained. Patient identification and proposed procedure were verified by the physician. Mental Status Examination: alert and oriented. Airway Examination: normal oropharyngeal airway and neck mobility. Respiratory Examination: clear to auscultation. CV Examination: normal. Prophylactic Antibiotics: The patient does not require prophylactic antibiotics. Prior Anticoagulants: The patient has taken no anticoagulant or antiplatelet agents. ASA Grade Assessment: II - A patient with mild systemic disease. After reviewing the risks and benefits, the patient was deemed in satisfactory condition to undergo the procedure. The anesthesia plan was to use monitored anesthesia care (MAC). Immediately prior to administration of medications, the patient was re-assessed for adequacy to receive sedatives. The heart rate, respiratory rate, oxygen saturations, blood pressure, adequacy of pulmonary ventilation, and response to care were monitored throughout the procedure. The physical status of the patient was re-assessed after the procedure. After I obtained informed consent, the scope was passed under direct vision. Throughout the procedure, the patient's blood pressure, pulse, and oxygen saturations were monitored continuously. The was introduced through the anus and advanced to the cecum, identified by appendiceal orifice and ileocecal valve. The colonoscopy was performed without difficulty. The patient tolerated the procedure well. The quality of the bowel preparation was adequate. The ileocecal valve, appendiceal orifice, and rectum were photographed. Scope In: 9:44:48 AM Scope Withdrawal Time 0 hours 8 minutes 30 seconds Scope Out: 9:57:14 AM Total Procedure Duration Time 0 hours 12 minutes 26 seconds Findings: A few small-mouthed diverticula were found in the recto-sigmoid colon and sigmoid colon. A 5 mm polyp was found in the ascending colon. The polyp was sessile. The polyp was removed with a cold biopsy forceps. Resection and retrieval were complete. Impression: - Diverticulosis in the recto-sigmoid colon and in the sigmoid colon. - One 5 mm polyp in the ascending colon, removed with a cold biopsy forceps. Resected and retrieved. Recommendation: - Await pathology results. - Repeat colonoscopy in 5 years for surveillance. - Continue present medications. Procedure Code(s): --- Professional --- 73766, Colonoscopy, flexible; with biopsy, single or multiple CPT copyright 2021 [employer]. All rights reserved. The codes documented in this report are preliminary and upon guest service team leader review may be revised to meet current compliance requirements. Macario Rg DO 02/21/2025 10:05:35 AM This report has been signed electronically. Number of Addenda: 0 Note Initiated On: 02/21/2025 9:30 AM
--- NOTE | 2025-02-21 10:06 | OP.PROVAT_ITS ---
02/21/2025 Pattie Villanueva [address] [place] [address] Re : Colonoscopy procedure for Neha Bui Dear Dr. Villanueva This procedure was performed on Friday, February 21, 2025. My impressions and recommendations are as follows: Impressions : - Diverticulosis in the recto-sigmoid colon and in the sigmoid colon. - One 5 mm polyp in the ascending colon, removed with a cold biopsy forceps. Resected and retrieved. Recommendations : - Await pathology results. - Repeat colonoscopy in 5 years for surveillance. - Continue present medications. My findings are described in the full procedure note, which is enclosed. If I can be of further assistance, please feel free to contact me at . Sincerely, Macario Rg DO 02/21/2025 10:05:35 AM This report has been signed electronically.
--- NOTE | 2025-02-21 10:09 | PCM.POST.ANE ---
Anesthesia: Postop Eval I Current Vital Signs Temperature: 97.6 F Pulse Rate: 68 Blood Pressure: 95/59 Respiratory Rate: 16 Pulse Ox: 99 Oxygen Delivery Method: Room Air Assessment Airway patent: Yes Spontaneous unlabored respirations: Yes Mental status: Awake and Calm nausea: No Vomiting: No Anesthesia Complication: No Fluid Hydration Crystalloid volume administer (ml): 500 Total IV fluid infused: 500 Progress Note Anesthesia document: Postop Eval 1 completed: Yes
== END 2025-02-21 10:39 | disposition home or self-care (01) ==
LOC: EN 08:02 → AC 08:05
PROVIDERS: Anesthesiology; PCP Internal Medicine; Referring Provider Internal Medicine; Visit Provider Internal Medicine Gastroenterology
PROC: 0DJD8ZZ Inspection of Lower Intestinal Tract, Via Natural or Artificial Opening Endoscopic (ICD-10-PCS; CPT 45378; principal; 2025-02-21 08:55)
DX: Z12.11 Encounter for screening for malignant neoplasm of colon (principal); K51.40 Inflammatory polyps of colon without complications; K57.30 Diverticulosis of large intestine without perforation or abscess without bleeding
CPT/HCPCS: 45380; 81025; 88305; J2405